=== PATIENT | female | born 1990 | race Caucasian/White ===

== ENCOUNTER 2018-10-23 14:23 | Emergency (ER) | payer MEDICAID ==
[2018-10-23 14:26] VITALS: Ht 175.3 cm
[2018-10-23 15:05] LABS: BASOPHIL % 0.6 % (0-2)
[2018-10-23 15:16] LABS: CALCIUM 8.5 mg/dL (8.5-10.1); CARBON DIOXIDE 27.6 mmol/L (21-32); CHLORIDE SERUM 107 mmol/L (98-107); CREATININE SERUM 0.6 mg/dL (0.6-1.0); GFR1 > 60 mL/min; GLUCOSE SERUM 133 mg/dL (74-106); PLATELET COUNT 444 x10^3mcL (130-400); SODIUM SERUM 143 mmol/L (136-145)
[2018-10-23 15:29] LABS: ALKALINE PHOSPHATASE 111 U/L (46-116); ALT/SGPT 144 U/L (14-59); AST/SGOT 133 U/L (15-37); BILIRUBIN TOTAL 0.33 mg/dL (0.20-1.00); T4(THYROXINE) 9.1 ug/dL (4.7-13.3)
[2018-10-23 15:30] LABS: ALBUMIN 2.8 g/dL (3.4-5.0)
[2018-10-23 19:11] VITALS: BP 117/81
== END 2018-10-23 19:11 | disposition home or self-care (01) ==
LOC: ED 14:23
PROVIDERS: Emergency Medicine
DX: F41.9 Anxiety disorder, unspecified (principal); R00.0 Tachycardia, unspecified; F17.200 Nicotine dependence, unspecified, uncomplicated
CPT/HCPCS: 85378; 99406; J2060; J7030; Q0092